=== PATIENT | female | born 1985 | race Caucasian/White ===

== ENCOUNTER → 2018-05-30 | Outpatient (CLI) | payer OTHER ==
[~2018-05-30] VITALS: Ht 157.5 cm; Wt 62.1 kg
[~2018-05-30] MED LIST: NIFE60TA3 PO; PRENATAL + DHA1 EAC1; ZANTAC300 MG
== END | disposition home or self-care (01) ==
LOC: OBS/DEL 10:22 → EDSTATUS 11:37 → ER 22:12 → EDBD 22:22 → OBS/DEL 22:22 → ER 22:22
DX: O60.02 Preterm labor without delivery, second trimester (principal); Z34.02 Encounter for supervision of normal first pregnancy, second trimester

== ENCOUNTER 2018-05-31 00:23 | Inpatient (IN) | payer OTHER ==
[~2018-05-31] VITALS: Ht 157.5 cm; Wt 62.1 kg
[~2018-05-31 00:23] MED LIST changes: -NIFE60TA3 PO
== END 2018-06-02 15:28 | disposition home or self-care (01) | DRG 780 ==
LOC: OBS/DEL 00:23 → LDR 16:54 → OB/GYN 06-02 13:45
PROC: BY4CZZZ Ultrasonography of Second Trimester, Single Fetus (ICD-10-PCS; principal; 2018-05-31)
PROC: 4A1HXCZ Monitoring of Products of Conception, Cardiac Rate, External Approach (ICD-10-PCS; 2018-05-31)
DX: O47.1 False labor at or after 37 completed weeks of gestation (principal); Z04.3 Encounter for examination and observation following other accident

== ENCOUNTER 2018-06-17 16:54 | Inpatient (IN) | payer OTHER ==
[~2018-06-17] VITALS: Ht 157.5 cm; Wt 140.0 kg
[2018-06-17] MEDS ORDERED: NIFE60TA3 PO (21:47)
== END 2018-06-20 09:45 | DRG 780 ==
LOC: OBS/DEL 16:54 → LDR 06-18 14:20 → OB/GYN 06-18 14:20
PROC: BY4CZZZ Ultrasonography of Second Trimester, Single Fetus (ICD-10-PCS; principal; 2018-06-18)
PROC: 4A1HXCZ Monitoring of Products of Conception, Cardiac Rate, External Approach (ICD-10-PCS; 2018-06-18)
DX: O47.02 False labor before 37 completed weeks of gestation, second trimester (principal)

== ENCOUNTER 2018-09-10 05:03 | Inpatient (IN) | payer OTHER ==
[~2018-09-10] VITALS: Ht 154.9 cm; Wt 65.8 kg
[~2018-09-10 05:03] MED LIST changes: +NIFE60TA3 PO
[2018-09-10] MEDS ORDERED: OMEGA-31000 MG PO (05:49)
[2018-09-10] MEDS ORDERED: OSTERA TABLET1 EACH PO (05:50)
[2018-09-10] MEDS ORDERED: MAGNESIUM27 MG PO (05:51)
[2018-09-10] MEDS ORDERED: ZANTAC150 M3 PO (05:51)
[2018-09-13] MEDS ORDERED: IRON1TAB4 PO (06:50)
== END 2018-09-12 13:29 | disposition home or self-care (01) | DRG 807 ==
LOC: LDR 05:03 → OB/GYN 05:03 → LDR 05:04 → OB/GYN 14:14
PROC: 10E0XZZ Delivery of Products of Conception, External Approach (ICD-10-PCS; principal; 2018-09-10)
PROC: 3E033VJ Introduction of Other Hormone into Peripheral Vein, Percutaneous Approach (ICD-10-PCS; 2018-09-10)
PROC: 4A1HXCZ Monitoring of Products of Conception, Cardiac Rate, External Approach (ICD-10-PCS; 2018-09-10)
DX: O80 Encounter for full-term uncomplicated delivery (principal); Z37.0 Single live birth; Z3A.38 38 weeks gestation of pregnancy; Z22.330 Carrier of Group B streptococcus

== ENCOUNTER 2018-09-12 23:50 | Emergency (ER) | payer OTHER ==
[~2018-09-12] VITALS: Ht 157.5 cm; Wt 63.0 kg
[~2018-09-12 23:50] MED LIST changes: +MAGNESIUM27 MG PO; +OMEGA-31000 MG PO; +OSTERA TABLET1 EACH PO; +ZANTAC150 M3 PO
[2018-09-13] MEDS ORDERED: IRON1TAB4 PO (06:50)
== END 2018-09-13 08:45 ==
LOC: ER 23:50
DX: R42 Dizziness and giddiness (principal); R00.2 Palpitations

== ENCOUNTER 2022-07-05 08:37 | Outpatient (CLI) | payer OTHER ==
[~2022-07-05 08:37] MED LIST changes: +IRON1TAB4 PO
== END 2022-07-05 10:00 | disposition home or self-care (01) ==
LOC: PRENATAL 08:37
PROVIDERS: ATTEND Obstetrics & Gynecology Maternal & Fetal Medicine
DX: Z76.1 Encounter for health supervision and care of foundling (principal)

== ENCOUNTER 2022-08-02 08:02 | Outpatient (CLI) | payer OTHER | END 2022-08-02 09:15 | disposition home or self-care (01) | LOC: PRENATAL 08:02 | PROVIDERS: ATTEND Obstetrics & Gynecology Maternal & Fetal Medicine | DX: O35.9XX0 Maternal care for (suspected) fetal abnormality and damage, unspecified, not applicable or unspecified (principal); O35.3XX0 Maternal care for (suspected) damage to fetus from viral disease in mother, not applicable or unspecified; O09.529 Supervision of elderly multigravida, unspecified trimester; Z3A.20 20 weeks gestation of pregnancy ==

== ENCOUNTER 2022-11-30 07:14 | Inpatient (IN) | payer OTHER ==
[~2022-11-30] VITALS: Ht 157.5 cm; Wt 77.1 kg
== END 2022-12-02 17:15 | disposition home or self-care (01) | DRG 807 ==
LOC: OBS/DEL 07:14 → LDR 18:14 → OB/GYN 18:14
PROVIDERS: ADMIT Obstetrics & Gynecology Obstetrics; ATTEND Obstetrics & Gynecology Obstetrics
PROC: 10E0XZZ Delivery of Products of Conception, External Approach (ICD-10-PCS; principal; 2022-11-30)
PROC: 4A1HXCZ Monitoring of Products of Conception, Cardiac Rate, External Approach (ICD-10-PCS; 2022-11-30)
DX: O80 Encounter for full-term uncomplicated delivery (principal); Z37.0 Single live birth; Z3A.38 38 weeks gestation of pregnancy; Z20.822 Contact with and (suspected) exposure to COVID-19